=== PATIENT | male | born 1955 | race Caucasian/White ===

== ENCOUNTER 2017-07-16 07:00 | Emergency (ER) | payer OTHER ==
[2017-07-16 07:22] VITALS: BP 103/72
[2017-07-16] MEDS ORDERED: Lidocaine 1% 10 ML MDV INJECT SCH (07:30)
--- NOTE | 2017-07-16 08:00 | EDM.PDOC ---
ED HPI GENERAL MEDICAL PROBLEM - General Chief Complaint: Laceration Stated Complaint: LACERATION Time Seen by Provider: 07/16/17 07:55 Source of Information: Reports: Patient History Limitations: Reports: No Limitations - History of Present Illness INITIAL COMMENTS - FREE TEXT/NARRATIVE: PT STATES HE ACCIDENTALLY TRIPPED AND FELL INTO FURNITURE LAST NIGHT WHILE STAYING AT [facility]. SUSTAINED LACERATION TO RIGHT EYEBROW. DENIES LOC, MAST, VISION CHANGES, DIZZINESS, OR N/V. Onset Date: 07/15/17 Onset Time: 22:00 Duration: Hour(s): Location: Reports: Face Quality: Reports: Other (NO PAIN) Improves with: Reports: None Worsens with: Reports: None Context: Reports: Trauma Associated Symptoms: Reports: No Other Symptoms - Related Data Allergies Allergy/AdvReac Type Severity Reaction Status Date / Time No Known Drug Allergies Allergy Other Verified 07/16/17 07:07 Home Meds: Home Meds Levothyroxine 112 mcg PO DAILY 07/16/17 [History] Olmesartan/Amlodipin/Hcthiazid [Tribenzor 20-5-12.5 MG] 1 tab PO DAILY 07/16/17 [History] Pantoprazole [ProTONIX] 40 mg PO DAILY 07/16/17 [History] atorvaSTATin [Lipitor] 10 mg PO DAILY 07/16/17 [History] Social & Family History - Tobacco Use Smoking Status *Q: Never Smoker - Caffeine Use Caffeine Use: Reports: Coffee - Recreational Drug Use Recreational Drug Use: No ED ROS GENERAL - Review of Systems Review Of Systems: ROS reveals no pertinent complaints other than HPI. Constitutional: Reports: No Symptoms HEENT: Reports: No Symptoms Respiratory: Reports: No Symptoms Cardiovascular: Reports: No Symptoms Endocrine: Reports: No Symptoms GI/Abdominal: Reports: No Symptoms : Reports: No Symptoms Musculoskeletal: Reports: No Symptoms Skin: Reports: Wound (LACERATION TO RIGHT EYEBROW) Neurological: Reports: No Symptoms Psychiatric: Reports: No Symptoms Hematologic/Lymphatic: Reports: No Symptoms Immunologic: Reports: No Symptoms ED EXAM, SKIN/RASH Exam: See Below Exam Limited By: No Limitations General Appearance: Alert, WD/WN, No Apparent Distress Eye Exam: Bilateral Eye: Normal Inspection Ears: Normal External Exam, Normal Canal Nose: Normal Inspection, No Blood Throat/Mouth: Normal Inspection, Normal Lips, Normal Teeth, Normal Oropharynx, No Airway Compromise Head: Atraumatic, Normocephalic, Other (RIGHT MEDIAN EYEBROW WITH 2.5 CM LINEAR LACERATION) Respiratory/Chest: No Respiratory Distress Neurological: Alert, Oriented, CN II-XII Intact, Normal Cognition, No Motor/ Sensory Deficits Psychiatric: Normal Affect, Normal Mood Skin: Warm, Dry, Normal Color, No Rash, Other (WOUND ABOVE) Location, Skin: Face ED SKIN PROCEDURES - Laceration/Wound Repair Right Medial Face Appearance: Superficial, Linear, Clean Distal NVT: Neuro & Vascular Intact Anesthetic Type: Local Local Anesthesia - Lidocaine (Xylocaine): 1% Plain Local Anesthetic Volume: 2cc Skin Prep: Providone-Iodine (Betadine) Closed with: Sutures, Dermabond Suture Type: Running Suture Size: other (5.0) Repaired with: Vicryl Course - Vital Signs Last Recorded V/S: Last Vital Signs Temp Pulse 75 07/16/17 07:21 Resp 18 07/16/17 07:21 BP 103/72 07/16/17 07:21 Pulse Ox - Re-Assessments/Exams Free Text/Narrative Re-Assessment/Exam: 07/16/17 08:0PT AFEBRILE, NONTOXIC APPEARING, VSS, TOLERATED PROCEDURE WELL Departure - Departure Time of Disposition: 08:01 Disposition: Home, Self-Care 01 Condition: Good Clinical Impression: Facial laceration Qualifiers: Encounter type: initial encounter Qualified Code(s): S01.81XA - Laceration without foreign body of other part of head, initial encounter - Discharge Information Instructions: Laceration Care, Adult, [id number], Stitches, [place], or Adhesive Wound Closure, [id number] Additional Instructions: FOLLOW UP WITH YOUR PCP IN 5-7 DAYS. RETURN TO ER SOONER IF REDNESS OR SWELLING DEVELOPS - Assessment/Plan Assessment:: FACIAL LACERATION REPAIR Plan: F/U WITH PCP
== END 2017-07-16 08:10 | disposition home or self-care (01) ==
LOC: KA.ED 07:00
DX: S01.111A Laceration without foreign body of right eyelid and periocular area, initial encounter (principal); Z79.899 Other long term (current) drug therapy; W01.190A Fall on same level from slipping, tripping and stumbling with subsequent striking against furniture, initial encounter; Y92.59 Other trade areas as the place of occurrence of the external cause
CPT/HCPCS: 12011; 99283; A9270-GY